=== PATIENT | male | born 1980 | race African-American/Black ===

== ENCOUNTER 2017-06-19 11:48 | Emergency (ER) | payer SELFPAY ==
[2017-06-19 12:18] LABS: APPEARANCE HAZY (CLEAR); BILIRUBIN NEGATIVE (NEGATIVE); COLOR YELLOW (YELLOW); GLUCOSE NEGATIVE (NEGATIVE); KETONE NEGATIVE (NEGATIVE); NITRITE NEGATIVE (NEGATIVE); PROTEIN NEGATIVE (NEGATIVE); SPECIFIC GRAVITY 1.025 (1.005-1.020); UROBILINOGEN NORMAL (NORMAL)
[2017-06-19 12:33] LABS: BASOPHILS 0.2 % (0-2); EOSINOPHILS 2.6 % (0-7); HEMATOCRIT 37.7 % (42.0-54.0); HEMOGLOBIN 13.2 g/dL (13.5-17.5); IMMATURE GRANULOCYTES 0.2 % (0-5); LYMPHOCYTES 22.6 % (15-50); MCH 27.6 pg (26.0-34.0); MCV 78.7 fL (80.0-100.0); MEAN PLATELET VOLUME 10.1 fL (7.4-10.4); MONOCYTES 5.7 % (2-11); NEUTROPHILS 68.7 % (40-80); PLATELET COUNT 277 10x3/uL (130-400); RBC 4.79 10x6/uL (4.20-6.10); RDW 15.8 % (11.5-14.5); WBC 10.6 10x3/uL (4.8-10.8)
[2017-06-19 13:09] LABS: ALBUMIN 3.8 g/dL (3.4-5.0); ANION GAP 13.7 mmol/L (8-16); BILIRUBIN - TOTAL 0.3 mg/dL (0.2-1.3); C-REACTIVE PROTEIN 1.7 mg/dL (0.0-0.9); CALCIUM 9.7 mg/dL (8.5-10.1); CARBON DIOXIDE 24.1 mmol/L (21.0-32.0); CREATININE - SERUM 1.3 mg/dL (0.6-1.3); POTASSIUM - SERUM 3.8 mmol/L (3.5-5.1); PROTEIN - SERUM 8.5 g/dL (6.4-8.2)
[2017-06-19 14:11] LABS: ERYTHROCYTE SEDIMENTATION RATE 20 mm/hr (0-15)
== END 2017-06-19 16:28 | disposition home or self-care (01) ==
LOC: D.ER 11:48
PROVIDERS: Family Medicine
DX: R10.11 Right upper quadrant pain (principal); R10.31 Right lower quadrant pain; R11.2 Nausea with vomiting, unspecified; R19.7 Diarrhea, unspecified; R05 Cough; F17.200 Nicotine dependence, unspecified, uncomplicated

== ENCOUNTER 2019-08-23 13:20 | Emergency (ER) | payer SELFPAY ==
[~2019-08-23] VITALS: Ht 182.9 cm; Wt 109.1 kg
[2019-08-23 13:23] VITALS: BP 132/75; Ht 182.9 cm; Wt 109.1 kg
[2019-08-23 13:43] LABS: HEMATOCRIT 35.3 % (42.0-54.0); HEMOGLOBIN 12.5 g/dL (13.5-17.5); MCH 26.8 pg (26.0-34.0); MCHC 35.4 g/dL (31.0-37.0); MCV 75.8 fL (80.0-100.0); MEAN PLATELET VOLUME 10.2 fL (7.4-10.4); RBC 4.66 10x6/uL (4.20-6.10); RDW 15.8 % (11.5-14.5); WBC 3.6 10x3/uL (4.8-10.8)
[2019-08-23 13:44] LABS: PLATELET COUNT 174 10x3/uL (130-400)
[2019-08-23 13:52] LABS: ANION GAP 14.1 mmol/L (8-16); CALCIUM 8.4 mg/dL (8.5-10.1); CARBON DIOXIDE 25.1 mmol/L (21.0-32.0); CREATININE - SERUM 1.2 mg/dL (0.6-1.3); POTASSIUM - SERUM 3.2 mmol/L (3.5-5.1)
[2019-08-23 13:57] LABS: ALBUMIN 3.6 g/dL (3.4-5.0); BILIRUBIN - TOTAL 0.43 mg/dL (0.2-1.3); PROTEIN - SERUM 7.9 g/dL (6.4-8.2)
[2019-08-23 14:18] LABS: EOSINOPHILS 1 % (0-7); LYMPHOCYTES 56 % (15-50); MONOCYTES 9 % (2-11); NEUTROPHILS 31 % (40-80); PLATELET ESTIMATE NORMAL
[2019-08-23 15:19] LABS: INR 1.05 (0.85-1.17); PROTIME 13.6 SECONDS (11.6-15.0)
[2019-08-23 15:20] LABS: APTT 32.1 SECONDS (22.8-39.4)
[2019-08-23] MEDS ORDERED: ACETAMINOPHEN500 M1 PO (15:23)
[2019-08-23] MEDS ORDERED: IBUPROFEN800 MG PO (15:23)
[2019-08-23] MEDS ORDERED: CYCLOBENZAPRINE10 MG PO (15:23)
[2019-08-23 15:31] LABS: CKMB 0.4 U/L (0.0-3.6); CREATINE KINASE 285 UL (21-232)
[2019-08-23 15:36] LABS: TROPONIN-I 0.158 ng/mL (0.000-0.060)
--- NOTE | 2019-08-23 17:37 | NUR ---
THIS NURSE WENT INTO PT ROOM TO TRANSPORT HIM TO ROOM 2128 AND PT WAS UP AND DRESSED IN HIS CLOTHING AND HAD REMOVED HIS IV. DURING HIS STAY IN THE ED DR PAUL AND I BOTH HAD DISCUSSED WITH THE PATIENT THE RISK HE WAS PLACING HIMSELF AT IF HE LEFT THE ER PT HAD REPEATEDLY EXPRESSED HIS DESIRE TO LEAVE THE ER BECAUSE HE NEEDED TO GO BUY SHOES. WHEN PATIENT WAS GETTING DRESSED AND STATING HE WAS LEAVING THIS NURSE AGAIN ATTEMPTED TO SPEAK WITH PATIENT REGARDING HIS HEALTH STATUS. PT AGAIN STATED THAT HE WAS GOING TO LEAVE. HE REFUSED TO WAIT AND SIGN AMA PAPERWORK. DR YOUNGBLOOD WAS NOTIFIED AT 1730 THAT PATIENT WAS LEAVING THE ER.
== END 2019-08-23 17:37 | disposition home or self-care (01) ==
LOC: D.ER 13:20 → D.M2 15:54 → D.ER 15:54
PROVIDERS: Family Medicine
DX: R07.1 Chest pain on breathing (principal); R77.8 Other specified abnormalities of plasma proteins